=== PATIENT | female | born 1990 | race African-American/Black ===

== ENCOUNTER 2020-07-07 10:40 | Inpatient (IN) | payer BC ==
[~2020-07-07] VITALS: Ht 162.6 cm; Wt 102.5 kg
[2020-07-07 10:48] VITALS: BP 138/81
[2020-07-07] MEDS ORDERED: NOVOLOG100 UNIT/M SUBQ (10:54)
[2020-07-07] MEDS ORDERED: METFORMIN HCL500 M3 PO (10:54)
[2020-07-07 11:20] LABS: ABSOLUTE BASOPHILS 0.1 thou/uL (0.0-0.2); ABSOLUTE EOSINOPHILS 0.2 thou/uL (0.0-0.7); ABSOLUTE LYMPHOCYTES 4.3 thou/uL (0.8-5.3); ABSOLUTE MONOCYTES 0.5 thou/uL (0.0-1.2); BASOPHILS 0.6 %; EOSINOPHILS 2.6 %; HEMATOCRIT 42.3 % (37.0-47.0); LYMPHOCYTES 53.6 %; MCH 30.5 pg (26.0-34.0); MCHC 33.2 g/dL (28.0-37.0); MONOCYTES 5.9 %; MPV 8.6 fl. (7.2-11.1); NUCLEATED RBCS 0 /100WBC; PLATELET COUNT* 249 thou/uL (150-400); POLYS 37.3 %; RBC 4.59 mil/uL (4.20-5.00); RDW-CV 13.3 % (10.5-14.5)
[2020-07-07 11:29] LABS: CALCIUM 9.1 mg/dL (8.5-10.1); CREATININE 0.8 mg/dL (0.6-1.3); POTASSIUM 3.6 mmol/L (3.5-5.1)
[2020-07-07 11:30] LABS: PROTIME 9.8 Seconds (9.20-11.50)
[2020-07-07 11:33] LABS: TOTAL BILIRUBIN 0.4 mg/dL (<0.1-1.0); TOTAL PROTEIN 7.8 g/dL (6.4-8.2)
[2020-07-07 11:34] LABS: INR < 0.9
[2020-07-07] MEDS ORDERED: BASAGLAR K100 UNIT/1 SQ (14:06)
[2020-07-07 16:00] VITALS: BP 134/98
[2020-07-07 17:40] LABS: CHOLESTEROL 166 mg/dL (<200); HDL CHOLESTEROL 41 mg/dL (>40); LDL CHOLESTEROL 111 mg/dL (<100); SERUM ASSESSMENT Clear; TRIGLYCERIDE 71 mg/dL (<150); VLDL 14 mg/dL (<40)
[2020-07-07 18:30] VITALS: BP 120/81
[2020-07-07 18:57] VITALS: BP 144/87
[2020-07-07 20:00] VITALS: BP 124/93
[2020-07-08] VITALS: BP 133/87
[2020-07-08 04:32] VITALS: BP 11/83; BP 115/83
--- NOTE | 2020-07-08 05:17 | NUR ---
ASSUMED CARE OF PT AFTER REPORT AT 1930. PT A&OX4. VSS. PHYSICAL ASSESSMENT COMPLETED AND CHARTED. PT ON RA. PT TRACING SR ON TELE. PT UPADLIB TO RESTROOM. NIH CHARTED. PT DENIES ANY PAIN. CALL LIGHT WITHIN REACH.
[2020-07-08 08:00] VITALS: BP 116/80
--- NOTE | 2020-07-08 11:43 | NUR ---
Pt is A&O. Resides at home with family. Independent. No DME. No hx of HH or SNF. ARU consulted. Therapy evals pending. Neuro consult pending. Plan MRI today. Pt may leave AMA, has 2 kids at home. Following for dc needs.
[2020-07-08 12:00] VITALS: BP 115/68
[2020-07-08] MEDS ORDERED: LIPITOR 40 MG T40 M1 PO (12:18)
[2020-07-08 12:53] VITALS: BP 116/80
--- NOTE | 2020-07-08 14:38 | 2DMMODE ---
[place] [address] 2 D/M-MODE ECHOCARDIOGRAM Name: DELORIS PADRON Room: [address] IN [place]#: [id number] Admission: 07/07/20 Attend Phys: Chacha Le Discharge: Date of : 89 Date of Service: 07/08/20 1438 Report #: [id number] THIS REPORT FOR: cc: Beth Simons Tami FNP Liston, Michael J. MD [facility] ~ APPROVED REPORT Study performed: 07/08/2020 10:36:38 EXAM: Comprehensive 2D, Doppler, and color-flow Echocardiogram Patient Location: In-Patient Room #: [facility] Status: routine BSA: 2.06 HR: 61 bpm BP: 115/83 mmHg Rhythm: NSR Other Information Study Quality: Good Indications rule out thrombus source numbness/dizziness 2D Dimensions IVSd: 10.37 (7-11mm) LVOT Diam: 20.91 (18-24mm) LVDd: 44.30 mm PWd: 10.83 (7-11mm) Ascending Ao: 26.32 (22-36mm) LVDs: 27.51 (25-40mm) Aortic Root: 24.34 mm Volumes Left Atrial Volume (Systole) LA ESV Index: 19.90 mL/m2 Aortic Valve AoV Peak Joel.: 1.20 m/s AO Peak Gr.: 5.74 mmHg LVOT Max P.18 mmHg AO Mean Gr.: 3.03 mmHg LVOT Mean P.40 mmHg LVOT Max V: 0.89 m/s AO V2 VTI: 25.38 cm LVOT Mean V: 0.53 m/s DONALD (VTI): 2.80 cm2 LVOT V1 VTI: 20.71 [place] [address] 2 D/M-MODE ECHOCARDIOGRAM Name: DELORIS PADRON Room: [address] IN [facility]#: [id number] Admission: 07/07/20 Attend Phys: Chacha Le Discharge: Date of : 89 Date of Service: 07/08/20 1438 Report #: [id number] Mitral Valve E/A Ratio: 1.32 MV Decel. Time: 246.69 ms MV E Max Joel.: 0.76 m/s MV PHT: 71.54 ms MVA (PHT): 3.08 cm2 TDI E/Lateral E': 4.75 E/Medial E': 5.85 Medial E' Joel.: 0.13 m/s Lateral E' Joel.: 0.16 m/s Pulmonary Valve PV Peak Joel.: 0.97 m/s PV Peak Gr.: 3.75 mmHg Tricuspid Valve RAP Estimate: 5.00 mmHg TR Peak Gr.: 14.36 mmHg RVSP: 19.00 mmHg PA Pressure: 19.00 mmHg Left Ventricle The left ventricle is normal size. There is normal LV segmental wall motion. There is normal left ventricular wall thickness. Left ventricular systolic function is normal. LVEF is 55-60%. The left ventricular diastolic function is normal. Right Ventricle The right ventricle is normal size. The right ventricular systolic function is normal. Atria The left atrium size is normal. The interatrial septum is intact with no evidence for an atrial septal defect. The right atrium size is normal. Aortic Valve The aortic valve is normal in structure. No aortic regurgitation is present. There is no aortic valvular stenosis. Mitral Valve The mitral valve is normal in structure. There is no mitral valve regurgitation noted. No evidence of mitral valve stenosis. Tricuspid Valve The tricuspid valve is normal in structure[place] [address] 2 D/M-MODE ECHOCARDIOGRAM Name: VITODELORIS Francois Room: [address] IN [facility]#: [id number] Admission: 07/07/20 Attend Phys: Chacha Le Discharge: Date of : 89 Date of Service: 07/08/20 1438 Report #: [id number] regurgitation. No pulmonary hypertension. Pulmonic Valve The pulmonary valve is normal in structure. Mild pulmonic regurgitation. Great Vessels The aortic root is normal in size. IVC is normal in size and collapses >50% with inspiration. Pericardium There is no pericardial effusion. <Conclusion> The left ventricle is normal size. There is normal left ventricular wall thickness. Left ventricular systolic function is normal. LVEF is 55-60%. The left ventricular diastolic function is normal. The interatrial septum is intact with no evidence for an atrial septal defect. Trace tricuspid regurgitation. No pulmonary hypertension. IVC is normal in size and collapses >50% with inspiration. <ELECTRONICALLY SIGNED> By: Chris Gray MD, FACC 07/08/20 1438 1438 1438 Chris Gray MD, FACC /INF
--- NOTE | 2020-07-08 15:49 | NUR ---
RECEIVED REPORT AROUND 0715. ASSUMED CARE. IV INTACT. VS AND ASSESSMENT CHARTED. HEART MONITOR ATTACHED SR. PT LYING IN BED THIS AM. PT ABLE TO WALK SELF. UP ADLIB. ST AND OT SAW PT THIS SHIFT. MRI NOT ACCEPTED SO CANCELLED. ECHO DONE. MEDS GIVEN PER AUG. HOURLY ROUNDING PERFORMED. PT STATED "NO" TO ANY PAIN. RECEIVED DISCHARGE ORDERS. DISCHARGE PACKET GIVEN TO PT. COMMUNICATED UNDERSTANDING. HEART MONITOR TAKEN OFF. IV TAKEN OUT. PT LEFT UNIT VIA AMBULATORY WITH NURSING STAFF AND ALL BELONGINGS AT 1545.
--- NOTE | 2020-07-08 16:06 | EKG ---
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1990 Requested By: Gerard Gupta Order Number: [id number] MD: Everette Underwood Measurements Intervals [place] Rate: 71 P: 50 UT: 146 QRS: 23 QRSD: 89 T: 6 QT: 371 QTc: 404 Interpretive Statements Sinus rhythm Baseline wander in lead(s) I,II,III,aVR,aVL,aVF,V1,V2,V3,V4,V5,V6 No previous ECG available for comparison Electronically Signed On 07-08-2020 16:06:26 [employer] by Everette Underwood [email or web address] <ELECTRONICALLY SIGNED> By: Everette Underwood MD, FAC 07/08/20 1606 1117 1117 Everette Underwood MD, [facility] /EPI
[2020-07-09 02:06] LABS: GLYCOHEMOGLOBIN (HGB A1C) 6.3 % (4.8-5.6)
== END 2020-07-08 15:43 | disposition home or self-care (01) | DRG 74 ==
LOC: M.ERS 10:40 → M.2W 12:16 → M.TBA-ER 12:16 → M.2W 12:16
PROVIDERS: Emergency Medicine Emergency Medical Services; ADMIT Internal Medicine; ATTEND Internal Medicine
DX: G58.7 Mononeuritis multiplex (principal); E11.9 Type 2 diabetes mellitus without complications; Z20.822 Contact with and (suspected) exposure to COVID-19; F17.210 Nicotine dependence, cigarettes, uncomplicated; E78.5 Hyperlipidemia, unspecified; E66.9 Obesity, unspecified; Z68.38 Body mass index [BMI] 38.0-38.9, adult; Z79.4 Long term (current) use of insulin